=== PATIENT | female | born 1940 | race Caucasian/White ===

== ENCOUNTER → 2017-04-08 | Outpatient (CLI) | payer OTHER, MEDICARE | LOC: CIMAGING 08:00 | PROVIDERS: ATTEND Internal Medicine Hematology & Oncology | DX: Z12.31 Encounter for screening mammogram for malignant neoplasm of breast (principal); I82.413 Acute embolism and thrombosis of femoral vein, bilateral; I82.433 Acute embolism and thrombosis of popliteal vein, bilateral | CPT/HCPCS: 93970-PO; G0202 ==